=== PATIENT | female | born 1935 | race Caucasian/White ===

== ENCOUNTER 2018-01-26 21:20 | Emergency (ER) | payer MEDICARE, OTHER ==
[~2018-01-26] VITALS: Ht 170.2 cm; Wt 105.0 kg
[~2018-01-26 21:20] MED LIST: ACCUPRIL5 MG PO; ALENDRONATE SOD70 MG PO; ALENDRONATE70 MG OR; ALENDRONATE70 MG PO; ALTACE5 M1 OR; ALTACE5 M1 PO; ALTACE5 M2 OR; ALTACE5 MG OR; ALTACE5 MG PO; AMBIEN5 MG PO; ANUSOL HC25 MG RE; ARICEPT10 MG PO; ARMOUR THYRO60 MG OR; ASPIRIN CHEWABL81 MG OR; BISACODYL10 M1 RE; CALCIUM500 MG/D PO; CALCIUM600 M2 PO; CIPROFLOXACIN250 MG PO; CIPROFLOXACN500 MG PO; COLACE100 MG PO; DARVOCET-N 100100 MG OR; DUONEB IN; EC ASPIRIN325 MG PO; ESCITALOPRAM OX10 MG PO; EXELON1.5 MG PO; FLEET ENEMA RE; FUROSEMIDE20 MG PO; GLIPIZIDE ER10 M1 PO; GLIPIZIDE ER10 MG OR; GLIPIZIDE10 MG OR; GLUCOTROL10 MG OR; GLUCOTROL5 MG OR; HYDROCO/APAP1 TA9 PO; KLOR-CON M1010 MEQ PO; LANTUS100 MG/ML SC; LANTUS100 UNIT/M SC; LASIX 20 MG TAB20 MG PO; LASIX 20 MG20 MG/TAB OR; LASIX 40 MG TAB40 MG OR; LASIX20 MG PO; LASIX40 MG OR; LEVOTHROID100 MCG OR; LEVOTHYROXIN100 MC1 PO; LEVOTHYROXIN100 MCG PO; LIPITOR10 MG OR; LISINOPRIL10 M1 PO; LORTAB 10 PO; LORTAB 5/3255 MG PO; MIRALAX3350 N1 OR; MULTI VIT PO; NAPROSYN375 MG PO; NOVOLOG100 UNIT/M SC; PERCOCET 5/325M1 TAB PO; PLAVIX75 MG PO; POTASSIUM CHLO10 ME3 PO; PREDNISONE50 MG PO; PREVACID15 M1 PO; PREVACID15 M3 PO; PREVACID30 M1 OR; RAMIPRIL1.25 MG PO; RAMIPRIL2.5 MG PO; REQUIP0.25 MG OR; RIVASTIGMINE1.5 MG PO; ROPINIROLE0.5 MG; ROPINIROLE0.5 MG PO; ROPINIROLE5 MG OR; SIMVASTATIN10 MG PO; SIMVASTATIN40 MG PO; TYLENOL # 31 TAB OR; TYLENOL # 31 TAB PO; TYLENOL325 MG PO; ULTRAM50 M1 PO; ULTRAM50 MG PO; VITAMIN B-121000 MCG PO; VITAMIN D400 MG PO; ZOLPIDEM5 MG PO; ZPAK PO
[2018-01-26] MEDS ORDERED: ASPIRIN 81 LOW81 MG PO (21:41)
[2018-01-27] MEDS ORDERED: PERCOCET 5/325M1 TAB PO (01:15)
[2018-01-27 01:21] VITALS: BP 118/55
== END 2018-01-27 01:38 ==
LOC: ED 21:20
DX: S80.12XA Contusion of left lower leg, initial encounter (principal); S80.11XA Contusion of right lower leg, initial encounter; S80.02XA Contusion of left knee, initial encounter; W05.0XXA Fall from non-moving wheelchair, initial encounter; Y93.89 Activity, other specified; Y92.122 Bedroom in nursing home as the place of occurrence of the external cause; F03.90 Unspecified dementia, unspecified severity, without behavioral disturbance, psychotic disturbance, mood disturbance, and anxiety

== ENCOUNTER 2018-04-01 15:17 | Emergency (ER) | payer MEDICARE, OTHER ==
[~2018-04-01] VITALS: Ht 170.2 cm; Wt 79.5 kg
[~2018-04-01 15:17] MED LIST changes: +ASPIRIN 81 LOW81 MG PO
[2018-04-01 15:45] LABS: HEMATOCRIT 34.5 % (37.0-47.0); IMMATURE GRANULOCYTES 0.3 % (0.0-5.0); MEAN CELL VOLUME 89.8 fL CALC (80.0-100.0); MEAN CORPUSCULAR HGB 28.6 pG CALC (26.0-32.0); MEAN CORPUSCULAR HGB CONC 31.9 g/L CALC (32.0-36.0); NEUT# 5.06 thou/uL (2.00-7.15); RED BLOOD COUNT 3.84 mill/uL (4.20-5.60); RED CELL DISTRI WIDTH 14.2 % (11.5-15.5)
[2018-04-01 15:58] LABS: INTERNATIONAL NORMALIZED RATIO 1.1 RATIO (0.7-1.3); PROTHROMBIN TIME 11.1 SECONDS (9.0-12.5)
[2018-04-01 15:59] LABS: ALBUMIN 3.5 g/dL (3.2-5.0); ALKALINE PHOSPHATASE 108 u/l (38-126); BILIRUBIN, TOTAL 0.6 mg/dL (0.0-1.4); BUN 19 mg/dL (8-23); BUN/CREATININE RATIO 40 (12-20 (CALC)); CHLORIDE 103 mmol/l (95-108); CREATININE 0.5 mg/dL (0.5-1.0); GFR > 60 ML/MIN (>=60 (CALC)); GFR FOR AFR.AMER. > 60 ML/MIN (>=60 (CALC)); POTASSIUM 4.4 mmol/l (3.5-5.1); SGOT/AST 38 u/l (9-36); SODIUM 139 mmol/l (137-146); TOTAL PROTEIN 6.7 g/dL (6.3-8.2)
[2018-04-01 16:01] LABS: ANION GAP 11 (6-22 (CALC)); CARBON DIOXIDE 29 mmol/l (22-30)
[2018-04-01 17:55] VITALS: BP 109/48
== END 2018-04-01 18:00 | disposition short-term general hospital (02) ==
LOC: ED 15:17
PROVIDERS: Emergency Medicine
DX: K92.0 Hematemesis (principal); F03.90 Unspecified dementia, unspecified severity, without behavioral disturbance, psychotic disturbance, mood disturbance, and anxiety
CPT/HCPCS: S0164

== ENCOUNTER → 2018-05-14 | Outpatient (REF) | payer MEDICARE, OTHER ==
[~2018-05-14] MED LIST changes: +BACTRIM DS1 TAB PO; +KEFLEX500 M1 PO; +MUPIROCIN2 % EX; +PANTOPRAZOLE SO40 MG PO
[2018-05-14 14:19] LABS: HEMATOCRIT 32.8 % (37.0-47.0); HEMOGLOBIN 11.2 g/dl (12.0-16.0); IMMATURE GRANULOCYTES 0.8 % (0.0-5.0); MEAN CORPUSCULAR HGB CONC 34.1 g/L CALC (32.0-36.0); NEUT# 3.95 thou/uL (2.00-7.15); RED BLOOD COUNT 3.86 mill/uL (4.20-5.60); RED CELL DISTRI WIDTH 13.7 % (11.5-15.5)
== END | disposition home or self-care (01) ==
LOC: LABSPEC-NH 14:00
PROVIDERS: ATTEND Internal Medicine
DX: K92.2 Gastrointestinal hemorrhage, unspecified (principal)

== ENCOUNTER 2018-05-26 14:56 | Emergency (ER) | payer MEDICARE, OTHER ==
[~2018-05-26] VITALS: Ht 170.2 cm; Wt 90.0 kg
[~2018-05-26 14:56] MED LIST changes: -BACTRIM DS1 TAB PO; -KEFLEX500 M1 PO; -MUPIROCIN2 % EX; -PANTOPRAZOLE SO40 MG PO
[2018-05-26] MEDS ORDERED: PANTOPRAZOLE SO40 MG PO (15:35)
[2018-05-26 16:07] LABS: HEMATOCRIT 34.3 % (37.0-47.0); HEMOGLOBIN 10.8 g/dl (12.0-16.0); IMMATURE GRANULOCYTES 0.1 % (0.0-5.0); MEAN CORPUSCULAR HGB 28.6 pG CALC (26.0-32.0); MEAN CORPUSCULAR HGB CONC 31.5 g/L CALC (32.0-36.0); NEUT# 4.27 thou/uL (2.00-7.15); RED BLOOD COUNT 3.77 mill/uL (4.20-5.60); RED CELL DISTRI WIDTH 13.6 % (11.5-15.5)
[2018-05-26 16:12] LABS: URINE BILIRUBIN - DIPSTICK NEGATIVE (NEGATIVE); URINE BLOOD DIPSTICK LARGE (NEGATIVE); URINE GLUCOSE - DIPSTICK NEGATIVE (NEGATIVE); URINE KETONE NEGATIVE (NEGATIVE); URINE LEUK ESTERASE NEGATIVE (NEGATIVE); URINE PH 8.5 (4.5-8.0); URINE PROTEIN - DIPSTICK >=300 mg/dL (NEG-TRACE)
[2018-05-26 16:15] LABS: ALBUMIN 3.5 g/dL (3.2-5.0); ALKALINE PHOSPHATASE 88 u/l (38-126); ANION GAP 14 (6-22 (CALC)); BILIRUBIN, TOTAL 0.4 mg/dL (0.0-1.4); BUN 27 mg/dL (8-23); BUN/CREATININE RATIO 41 (12-20 (CALC)); CARBON DIOXIDE 26 mmol/l (22-30); CHLORIDE 103 mmol/l (95-108); CREATININE 0.7 mg/dL (0.5-1.0); GFR > 60 ML/MIN (>=60 (CALC)); GFR FOR AFR.AMER. > 60 ML/MIN (>=60 (CALC)); POTASSIUM 4.7 mmol/l (3.5-5.1); SGOT/AST 23 u/l (9-36); SODIUM 138 mmol/l (137-146); TOTAL PROTEIN 6.5 g/dL (6.3-8.2)
[2018-05-26 16:19] LABS: URINE COLOR RED; URINE NITRITE - DIPSTICK POSITIVE (Negative)
[2018-05-26 16:20] LABS: URINE BACTERIA FEW hpf; URINE RBC TNTC RBC/hpf (0-5); URINE SQUAMOUS EPITHELIAL CELL FEW EPI/hpf (0-FEW)
[2018-05-26] MEDS ORDERED: BACTRIM DS1 TAB PO (16:32)
[2018-05-26 16:54] VITALS: BP 109/68
== END 2018-05-26 16:56 ==
LOC: ED 14:56
DX: N39.0 Urinary tract infection, site not specified (principal); R31.9 Hematuria, unspecified; E11.9 Type 2 diabetes mellitus without complications; I10 Essential (primary) hypertension; E78.5 Hyperlipidemia, unspecified; F03.90 Unspecified dementia, unspecified severity, without behavioral disturbance, psychotic disturbance, mood disturbance, and anxiety; F32.9 Major depressive disorder, single episode, unspecified; G25.81 Restless legs syndrome; M81.0 Age-related osteoporosis without current pathological fracture

== ENCOUNTER 2018-05-27 13:47 | Inpatient (IN) | payer MEDICARE, OTHER ==
[~2018-05-27] VITALS: Ht 182.9 cm; Wt 77.0 kg
[~2018-05-27 13:47] MED LIST changes: +BACTRIM DS1 TAB PO; +PANTOPRAZOLE SO40 MG PO
[2018-05-27 14:55] LABS: HEMATOCRIT 32.1 % (37.0-47.0); HEMOGLOBIN 10.1 g/dl (12.0-16.0); IMMATURE GRANULOCYTES 0.2 % (0.0-5.0); MEAN CELL VOLUME 90.2 fL CALC (80.0-100.0); MEAN CORPUSCULAR HGB 28.4 pG CALC (26.0-32.0); MEAN CORPUSCULAR HGB CONC 31.5 g/L CALC (32.0-36.0); NEUT# 3.86 thou/uL (2.00-7.15); RED BLOOD COUNT 3.56 mill/uL (4.20-5.60); RED CELL DISTRI WIDTH 13.6 % (11.5-15.5)
[2018-05-27 15:22] LABS: ALBUMIN 3.2 g/dL (3.2-5.0); ALKALINE PHOSPHATASE 89 u/l (38-126); ANION GAP 13 (6-22 (CALC)); BILIRUBIN, TOTAL 0.3 mg/dL (0.0-1.4); BUN 22 mg/dL (8-23); BUN/CREATININE RATIO 27 (12-20 (CALC)); CARBON DIOXIDE 26 mmol/l (22-30); CHLORIDE 103 mmol/l (95-108); CREATININE 0.8 mg/dL (0.5-1.0); GFR > 60 ML/MIN (>=60 (CALC)); GFR FOR AFR.AMER. > 60 ML/MIN (>=60 (CALC)); POTASSIUM 4.6 mmol/l (3.5-5.1); SGOT/AST 18 u/l (9-36); SODIUM 138 mmol/l (137-146)
[2018-05-27 16:28] VITALS: BP 108/44
[2018-05-27 19:25] VITALS: BP 109/60
[2018-05-27 23:45] VITALS: BP 119/60
[2018-05-28] VITALS (9 sets, daily range): BP systolic 106–140; BP diastolic 40–60
[2018-05-28 05:33] LABS: HEMOGLOBIN 10.6 g/dl (12.0-16.0); IMMATURE GRANULOCYTES 0.3 % (0.0-5.0); MEAN CELL VOLUME 91.2 fL CALC (80.0-100.0); MEAN CORPUSCULAR HGB 28.4 pG CALC (26.0-32.0); MEAN CORPUSCULAR HGB CONC 31.2 g/L CALC (32.0-36.0); NEUT# 3.98 thou/uL (2.00-7.15); RED BLOOD COUNT 3.73 mill/uL (4.20-5.60); RED CELL DISTRI WIDTH 13.6 % (11.5-15.5)
[2018-05-28 05:43] LABS: URINE CLARITY TURBID
[2018-05-28 05:44] LABS: URINE COLOR RED; URINE RBC 25-50 RBC/hpf (0-5); URINE SQUAMOUS EPITHELIAL CELL FEW EPI/hpf (0-FEW); URINE WBC 50-100 WBC/hpf (0-5)
[2018-05-28 05:45] LABS: URINE AMORPH SEDIMENT MODERATE hpf (NONE-FEW); URINE BACTERIA MODERATE hpf
[2018-05-28 15:01] LABS: ANION GAP 12 (6-22 (CALC)); BUN 14 mg/dL (8-23); BUN/CREATININE RATIO 23 (12-20 (CALC)); CARBON DIOXIDE 22 mmol/l (22-30); CHLORIDE 107 mmol/l (95-108); CREATININE 0.6 mg/dL (0.5-1.0); GFR > 60 ML/MIN (>=60 (CALC)); GFR FOR AFR.AMER. > 60 ML/MIN (>=60 (CALC)); MAGNESIUM 1.8 mg/dL (1.6-2.3); POTASSIUM 4.2 mmol/l (3.5-5.1); SODIUM 137 mmol/l (137-146)
[2018-05-29] VITALS (7 sets, daily range): BP systolic 112–133; BP diastolic 42–62
[2018-05-30 03:48] VITALS: BP 117/55
[2018-05-30 05:40] LABS: HEMOGLOBIN 10.4 g/dl (12.0-16.0); IMMATURE GRANULOCYTES 0.5 % (0.0-5.0); MEAN CELL VOLUME 92.2 fL CALC (80.0-100.0); MEAN CORPUSCULAR HGB 29.1 pG CALC (26.0-32.0); MEAN CORPUSCULAR HGB CONC 31.5 g/L CALC (32.0-36.0); NEUT# 2.62 thou/uL (2.00-7.15); RED BLOOD COUNT 3.58 mill/uL (4.20-5.60); RED CELL DISTRI WIDTH 13.6 % (11.5-15.5)
[2018-05-30 05:44] LABS: ALBUMIN 3.3 g/dL (3.2-5.0); ALKALINE PHOSPHATASE 80 u/l (38-126); AMYLASE 94 u/l (30-110); ANION GAP 12 (6-22 (CALC)); BILIRUBIN, TOTAL 0.5 mg/dL (0.0-1.4); BUN 9 mg/dL (8-23); BUN/CREATININE RATIO 15 (12-20 (CALC)); CARBON DIOXIDE 28 mmol/l (22-30); CHLORIDE 105 mmol/l (95-108); CREATININE 0.6 mg/dL (0.5-1.0); GFR > 60 ML/MIN (>=60 (CALC)); GFR FOR AFR.AMER. > 60 ML/MIN (>=60 (CALC)); LIPASE 11 u/l (23-300); MAGNESIUM 2.1 mg/dL (1.6-2.3); POTASSIUM 4.7 mmol/l (3.5-5.1); SGOT/AST 25 u/l (9-36); SODIUM 141 mmol/l (137-146); TOTAL PROTEIN 6.1 g/dL (6.3-8.2)
[2018-05-30 08:24] VITALS: BP 143/50
[2018-05-30 11:20] VITALS: BP 141/76
[2018-05-30] MEDS ORDERED: KEFLEX500 M1 PO (15:03)
[2018-05-30 15:45] VITALS: BP 140/70
[2018-05-30 19:24] VITALS: BP 108/62
[2018-05-30 23:35] VITALS: BP 99/51
[2018-05-31 04:10] VITALS: BP 137/65
[2018-05-31 07:47] VITALS: BP 139/70
[2018-05-31] MEDS ORDERED: MUPIROCIN2 % EX (11:31)
[2018-05-31 11:51] VITALS: BP 130/65
[2018-05-31 17:01] VITALS: BP 140/69
[2018-05-31 20:00] VITALS: BP 106/66
[2018-06-01 00:20] VITALS: BP 137/80
[2018-06-01 07:48] VITALS: BP 154/64
[2018-06-01 07:49] VITALS: BP 154/64
== END 2018-06-01 08:45 | DRG 670 ==
LOC: MS2 13:47
PROVIDERS: Internal Medicine Nephrology; Nurse Practitioner Family; ADMIT Internal Medicine; ATTEND Internal Medicine
PROC: 0TBB8ZX Excision of Bladder, Via Natural or Artificial Opening Endoscopic, Diagnostic (ICD-10-PCS; principal; 2018-05-28)
PROC: 0T9B70Z Drainage of Bladder with Drainage Device, Via Natural or Artificial Opening (ICD-10-PCS; 2018-05-28)
DX: N39.0 Urinary tract infection, site not specified (principal); R31.0 Gross hematuria; I10 Essential (primary) hypertension; F03.90 Unspecified dementia, unspecified severity, without behavioral disturbance, psychotic disturbance, mood disturbance, and anxiety; E11.9 Type 2 diabetes mellitus without complications; E03.9 Hypothyroidism, unspecified; E78.5 Hyperlipidemia, unspecified; M81.0 Age-related osteoporosis without current pathological fracture; B96.4 Proteus (mirabilis) (morganii) as the cause of diseases classified elsewhere; T39.015A Adverse effect of aspirin, initial encounter; Z86.73 Personal history of transient ischemic attack (TIA), and cerebral infarction without residual deficits; Z22.322 Carrier or suspected carrier of Methicillin resistant Staphylococcus aureus; Z88.0 Allergy status to penicillin; Z79.4 Long term (current) use of insulin

== ENCOUNTER 2019-08-26 07:55 | Emergency (ER) | payer MEDICARE, OTHER ==
[~2019-08-26 07:55] MED LIST changes: +KEFLEX500 M1 PO; +MUPIROCIN2 % EX
[2019-08-26] MEDS ORDERED: ALDACTONE25 MG PO (08:39)
[2019-08-26] MEDS ORDERED: LASIX 20 MG TAB20 MG PO (08:42)
[2019-08-26 11:46] VITALS: BP 110/86
[2019-08-26 11:46] LABS: HEMATOCRIT 29.8 % (37.0-47.0); HEMOGLOBIN 9.7 g/dl (12.0-16.0); IMMATURE GRANULOCYTES 0.6 % (0.0-5.0); MEAN CELL VOLUME 90.6 fL CALC (80.0-100.0); MEAN CORPUSCULAR HGB 29.5 pG CALC (26.0-32.0); MEAN CORPUSCULAR HGB CONC 32.6 g/dL CAL (32.0-36.0); NEUT# 5.6 thou/uL (2.00-7.15); RED BLOOD COUNT 3.29 mill/uL (4.20-5.60); RED CELL DISTRI WIDTH 13.5 % (11.5-15.5)
[2019-08-26 12:05] LABS: PROTHROMBIN TIME 10.8 SECONDS (9.0-12.5)
[2019-08-26 12:07] LABS: ALBUMIN 3.1 g/dL (3.2-5.0); ALKALINE PHOSPHATASE 95 u/l (38-126); ANION GAP 9 (6-22 (CALC)); BILIRUBIN, TOTAL 0.6 mg/dL (0.0-1.4); BUN 18 mg/dL (8-23); BUN/CREATININE RATIO 35 (12-20 (CALC)); CARBON DIOXIDE 25 mmol/l (22-30); CHLORIDE 108 mmol/l (95-108); CREATININE 0.5 mg/dL (0.5-1.0); GFR > 60 ML/MIN (>=60 (CALC)); GFR FOR AFR.AMER. > 60 ML/MIN (>=60 (CALC)); POTASSIUM 4.2 mmol/l (3.5-5.1); SODIUM 137 mmol/l (137-146); TOTAL PROTEIN 6.3 g/dL (6.3-8.2)
[2019-08-26 12:08] LABS: SGOT/AST 44 u/l (9-36)
== END 2019-08-26 11:35 | disposition short-term general hospital (02) ==
LOC: ED 07:55
PROVIDERS: Emergency Medicine
DX: S72.402A Unspecified fracture of lower end of left femur, initial encounter for closed fracture (principal); M97.12XA Periprosthetic fracture around internal prosthetic left knee joint, initial encounter; E11.9 Type 2 diabetes mellitus without complications; I10 Essential (primary) hypertension; F03.90 Unspecified dementia, unspecified severity, without behavioral disturbance, psychotic disturbance, mood disturbance, and anxiety; J44.9 Chronic obstructive pulmonary disease, unspecified; X58.XXXA Exposure to other specified factors, initial encounter; Y92.129 Unspecified place in nursing home as the place of occurrence of the external cause; Z96.652 Presence of left artificial knee joint; Z79.4 Long term (current) use of insulin; Z11.59 Encounter for screening for other viral diseases

== ENCOUNTER 2020-01-01 14:23 | Inpatient (IN) | payer MEDICARE, OTHER ==
[~2020-01-01] VITALS: Ht 177.8 cm; Wt 72.6 kg
[~2020-01-01 14:23] MED LIST changes: +ALDACTONE25 MG PO
--- NOTE | 2020-01-01 14:35 | NUR ---
PT TO ROOM VIA STRETCHER WITH AUDIBLE WHEEZING
--- NOTE | 2020-01-01 15:10 | NUR ---
UNABLE TO OBTAINED IV ACCESS AT THIS TIME AFTER MANY ATTEMPTS WILL TRY AGAIN SOON. PT NON VERBAL NO S/S OF DISTRESS OR DISCOMFORT, CALL BARKLEY WITHIN REACH
[2020-01-01 15:22] LABS: HEMATOCRIT 33.7 % (37.0-47.0); HEMOGLOBIN 10.7 g/dl (12.0-16.0); IMMATURE GRANULOCYTES 0.2 % (0.0-5.0); MEAN CELL VOLUME 85.8 fL CALC (80.0-100.0); MEAN CORPUSCULAR HGB 27.2 pG CALC (26.0-32.0); MEAN CORPUSCULAR HGB CONC 31.8 g/dL CAL (32.0-36.0); NEUT# 2.3 thou/uL (2.00-7.15); RED BLOOD COUNT 3.93 mill/uL (4.20-5.60); RED CELL DISTRI WIDTH 16.2 % (11.5-15.5)
[2020-01-01 15:29] LABS: ALBUMIN 3.3 g/dL (3.2-5.0); ALKALINE PHOSPHATASE 71 u/l (38-126); ANION GAP 10 (6-22 (CALC)); BUN 18 mg/dL (8-23); BUN/CREATININE RATIO 26 (12-20 (CALC)); CARBON DIOXIDE 25 mmol/l (22-30); CHLORIDE 107 mmol/l (95-108); CREATININE 0.7 mg/dL (0.5-1.0); GFR > 60 ML/MIN (>=60 (CALC)); GFR FOR AFR.AMER. > 60 ML/MIN (>=60 (CALC)); POTASSIUM 3.8 mmol/l (3.5-5.1); SGOT/AST 20 u/l (9-36); SODIUM 138 mmol/l (137-146); TOTAL PROTEIN 6.2 g/dL (6.3-8.2)
[2020-01-01 15:38] LABS: BILIRUBIN, TOTAL 0.3 mg/dL (0.0-1.4)
[2020-01-01 15:40] LABS: INTERNATIONAL NORMALIZED RATIO 1.1 RATIO (0.7-1.3)
--- NOTE | 2020-01-01 16:11 | NUR ---
REMAINS UNABLE TO OBTAINED IV ACCESS AFTER GREATER THAN 10 ATTEMPTS, NO S/S OF DISTRESS OR DISCOMFORT, MD AWARE.
--- NOTE | 2020-01-01 16:37 | NUR ---
IV ACCESS OBTAINED PT IN CT AT THIS TIME, WILL CONTINUE TO MONITOR.
--- NOTE | 2020-01-01 17:35 | NUR ---
IV ACCESS OBTAINED AND IVF INFUSING
--- NOTE | 2020-01-01 18:01 | NUR ---
[facility] SWAB COMPLATED ST CATH PERFRFOMED FOR URINE COLLECTION WITH SMALL AMOUNT CLOUDY MILKY YELLOW URINE REC'D, SPECIMEN SENT, WILL CONTINUE TO MONITOR.
[2020-01-01] MEDS ORDERED: EQL VITAMIN B500 MCG PO (18:17)
[2020-01-01] MEDS ORDERED: VITAMIN D PO (18:19)
[2020-01-01] MEDS ORDERED: MULTI VIT PO (18:21)
[2020-01-01] MEDS ORDERED: REMERON7.5 MG PO (18:21)
[2020-01-01 18:26] LABS: URINE BILIRUBIN - DIPSTICK NEGATIVE (NEGATIVE); URINE BLOOD DIPSTICK LARGE (NEGATIVE); URINE COLOR STRAW; URINE GLUCOSE - DIPSTICK NEGATIVE (NEGATIVE); URINE KETONE TRACE mg/dL (NEGATIVE); URINE LEUK ESTERASE MODERATE (NEGATIVE); URINE NITRITE - DIPSTICK NEGATIVE (Negative); URINE PH 5.5 (4.5-8.0); URINE PROTEIN - DIPSTICK 100 mg/dL (NEG-TRACE); URINE SPECIFIC GRAVITY >=1.030; URINE UROBILINOGEN - DIPSTICK 0.2 E.U./dL (0.2)
[2020-01-01 18:27] LABS: URINE SQUAMOUS EPITHELIAL CELL MANY EPI/hpf (0-FEW); URINE WBC TNTC WBC/hpf (0-5)
--- NOTE | 2020-01-01 19:30 | NUR ---
PATIENT REMOVED HIMSELF FROM MONITOR, NIBP, O2 AND PULSE OX AND AMBULATED TO . ON RETURNING TO BED STARTED YELLING OUT OUT, "I CAN'T BREATHE, I CAN'T BREATHE." ASSISTED PATIENT TO BED, REPLACED O2- O2 SAT 68%. INCREASED O2 FROM 4 L NC TO 10 L NC. O2 SAT GRADUALLY PICKED UP TO 91-93% DISCUSSED WITH PAITENT NEED FOR O2 AND NEED TO USE URINAL OR BSC AT BEDSIDE DUE TO DESATTING. PATIENT VERBALIZES UNDERSTANDING AND AGREEMENT WITH PLAN. BSC AND URINAL PROVIDED AT BEDSIDE.
--- NOTE | 2020-01-01 19:45 | NUR ---
RESTING IN BED. RESP NON-LABORED AT THIS TIME. CHANGED O2 TO 10 L HF NC. BREATH SOUNDS COARSE THROUGHOUT. SHIFT ASSESSMENT COMPLETED. DENIES NEEDS AT THIS TIME. CALL BARKLEY IN REACH.
--- NOTE | 2020-01-01 20:13 | NUR ---
RECEIVED REPORT FROM NURSE GRANT PATIENT TRANSPORTED VIA BED, TOTAL ASSIST WITH TRANSFER, PATIENT IS ASLEEP, RESPONDS TO PAIN STIMULI, WITH ONGOING IV NS IV BOLUS @LAC G20 INFUSING WELL, HOOKED TO TELE SB 53, INCONTINENT CARE PROVIDED, BED ALARM IN PLACE.
--- NOTE | 2020-01-01 20:15 | NUR ---
PATIENT IS STABLE, LYING ON STRETCHED ON THE LEFT SIDE RESTING. REPORT CALLED , IV SITE HAS FLUIDS INFUSING WITHOUT ANY COMPLICATIONS. PATIENT TRANSPORTED TO THE FLOOR VIA STRETCHER. TELE MONITOR IN PLACE.
[2020-01-01 20:47] VITALS: BP 139/60
[2020-01-01 23:47] VITALS: BP 147/63
--- NOTE | 2020-01-02 | NUR ---
PATIENT RESPONDS TO PAIN STIMULI, APPLIED PUREWICK, PATIENT TURNED AND REPOSITIONED, BREATHING UNLABORED CALL LIGHT AT [facility].
[2020-01-02 04:00] VITALS: BP 134/58
--- NOTE | 2020-01-02 04:41 | NUR ---
PATIENT MORE ALERT OPENS EYES NO NAME, NOT IN DISTRESS BREATHING SHALLOW UNLABORED, CALL LIGHT AT REACH.
[2020-01-02 05:11] LABS: HEMATOCRIT 34.8 % (37.0-47.0); HEMOGLOBIN 10.9 g/dl (12.0-16.0); IMMATURE GRANULOCYTES 0.2 % (0.0-5.0); MEAN CELL VOLUME 86.6 fL CALC (80.0-100.0); MEAN CORPUSCULAR HGB 27.1 pG CALC (26.0-32.0); MEAN CORPUSCULAR HGB CONC 31.3 g/dL CAL (32.0-36.0); NEUT# 2.39 thou/uL (2.00-7.15); RED BLOOD COUNT 4.02 mill/uL (4.20-5.60); RED CELL DISTRI WIDTH 16.6 % (11.5-15.5)
[2020-01-02 05:31] LABS: ALBUMIN 2.9 g/dL (3.2-5.0); ALKALINE PHOSPHATASE 60 u/l (38-126); ANION GAP 8 (6-22 (CALC)); BUN 17 mg/dL (8-23); BUN/CREATININE RATIO 35 (12-20 (CALC)); CARBON DIOXIDE 24 mmol/l (22-30); CHLORIDE 113 mmol/l (95-108); CREATININE 0.5 mg/dL (0.5-1.0); GFR > 60 ML/MIN (>=60 (CALC)); GFR FOR AFR.AMER. > 60 ML/MIN (>=60 (CALC)); POTASSIUM 3.9 mmol/l (3.5-5.1); SGOT/AST 19 u/l (9-36); SODIUM 140 mmol/l (137-146); TOTAL PROTEIN 5.7 g/dL (6.3-8.2)
[2020-01-02 05:55] LABS: BILIRUBIN, TOTAL 0.5 mg/dL (0.0-1.4)
--- NOTE | 2020-01-02 06:55 | NUR ---
REPORT RECEIVED FROM DIANE PENA. PT RESTING IN BED. NO S/S OF DISTRESS AT THIS TIME. WILL CONTINUE TO MONITOR.
--- NOTE | 2020-01-02 07:56 | NUR ---
PT RESTING IN BED. RESPIRATIONS SHALLOW ON RA. LUNGS SOUND DIMINISHED. PEDAL PULSES ARE WEAK. PT DENIES ANY PAIN AT THIS TIME. SAFETY PRECAUTIONS IN PLACE. WILL CONTINUE TO MONITOR.
[2020-01-02 08:01] VITALS: BP 145/89
--- NOTE | 2020-01-02 10:09 | NUR ---
ART FROM [facility] CALLED FOR INFORMATION REGARDING PT AND HOSPICE CONSULT. STATES SHE WILL CONTACT DAUGHTER ABOUT HER WISHES AND HAVE A NURSE COME TO BEDSIDE FOR EVAL.
[2020-01-02 10:55] VITALS: BP 122/40
--- NOTE | 2020-01-02 12:42 | NUR ---
PT RESTING IN BED, RESPIRATIONS EVEN AND UNLABORED ON RA. NO S/S OF DISTRESS AT THIS TIME. WILL CONTINUE TO MONITOR.
[2020-01-02 15:00] VITALS: BP 90/39
--- NOTE | 2020-01-02 15:44 | NUR ---
IV SITE TO LAC INFILTRATED; IV DC'D, ICE APPLIED, AND LEFT ARM ELEVATED ON PILLOW. NEW SITE STARTED TO RAC; APPEARS HEALTHY AND FLUSHES WELL; IV FLUIDS RECONNECTED AND INFUSING.
--- NOTE | 2020-01-02 16:04 | NUR ---
PT RESTING IN BED. NO S/S OF DISTRESS AT THIS TIME. SAFETY PRECAUTIONS IN PLACE. WILL CONTINUE TO MONITOR.
[2020-01-02 19:00] VITALS: BP 144/70
--- NOTE | 2020-01-02 19:10 | NUR ---
REPORT FROM MERRY CONTRERAS. PT NOTED RESTING IN BED WITH EYES CLOSED. PT ALERT TO VERBAL STIMULI. PT VERBALLY RESPONSIVE, BUT UNINTELLIGIBLE. NO APPARENT DISTRESS NOTED. NO S/S OF PAIN OR DISCOMFORT. RESPIRATIONS EVEN AND UNLABORED. IV SITE APPEARS HEALTHY WITH IVF INFUSING WITHOUT DIFFICULTY. CAUSTIC PUMP OPERATOR IN PLACE. INCONTINENT OF BOWEL AND BLADDER, PURWICK IN PLACE. PT REPOSITIONED AT THIS TIME. CALL LIGHT WITHIN REACH. WILL CONTINUE TO MONITOR.
--- NOTE | 2020-01-02 23:25 | NUR ---
PT RESTING IN BED WITH EYES CLOSED. NO APPARENT DISTRESS NOTED. RESPIRATIONS EVEN AND UNLABORED. SEMIAUTOMATIC STITCHER OPERATOR IN PLACE. IVF INFUSING WITHOUT DIFFICULTY. CALL LIGHT WITHIN REACH. WILL CONTINUE TO MONITOR.
[2020-01-03 00:18] VITALS: BP 120/84
--- NOTE | 2020-01-03 00:20 | NUR ---
PT NOTED TO HAVE INCREASED EDEMA IN BUE AND AUDIBLE WHEEZING. ORDERS RECEIVED TO KVI FLUIDS AND 1 TIME DOSE OF LASIX. WILL MEDICATED AND CONTINUE TO MONITOR.
[2020-01-03 04:25] VITALS: BP 125/72
--- NOTE | 2020-01-03 04:34 | NUR ---
PT RESTING IN BED. PT AWAKE LOOKING AROUND. NO APPARENT DISTRESS NOTED. AUDIBLE WHEEZING SUBSIDED. PURWIK IN PLACE FUNCTIONING PROPERLY. PT REPOSITIONED BY STAFF Q2H THROUGHOUT NIGHT. CALL LIGHT WITHIN REACH. WILL CONTINUE TO MONITOR.
--- NOTE | 2020-01-03 06:48 | NUR ---
REPORT RECEIVED FROM HEAVEN ANDREA. PT RESTING IN BED. NO S/S OF DISTRESS AT THIS TIME. SAFETY PRECAUTIONS IN PLACE. WILL CONTINUE TO MONITOR.
[2020-01-03 07:12] VITALS: BP 155/69
--- NOTE | 2020-01-03 07:13 | NUR ---
DE RESTING IN BED, ALERT. RESPIRATIONS ARE EVEN AND UNLABRORED ON RA. LUNGS SOUND DIMINISHED. PEDAL PULSES ARE WEAK. PT STATES "I DON'T KNOW" WHEN ASKED IF SHE IS IN PAIN. SAFETY PRECAUTIONS IN PLACE. WILL CONTINUE TO MONITOR.
--- NOTE | 2020-01-03 08:42 | NUR ---
AND ANRP AT BEDSIDE
[2020-01-03] MEDS ORDERED: ALDACTONE25 MG PO (10:09)
[2020-01-03 11:21] VITALS: BP 115/44
--- NOTE | 2020-01-03 11:30 | NUR ---
PT RESTING IN BED, RESPIRATIONS ARE EVEN AND UNLABORED ON RA. NO S/S OF DISTRESS AT THIS TIME. FAMILY AT BEDSIDE VISITING. SAFETY PRECAUTIONS IN PLACE. WILL CONTINUE TO MONITOR.
--- NOTE | 2020-01-03 14:08 | NUR ---
DAUGHTER AT BEDSIDE VISITING
[2020-01-03 15:24] VITALS: BP 121/59
--- NOTE | 2020-01-03 16:13 | NUR ---
PT RESTING IN BED WITH EYES CLOSED, EASILY AROUSED. RESPIRATIONS SHALLOW ON RA. SAFETY PRECAUTIONS IN PLACE.
--- NOTE | 2020-01-03 19:25 | NUR ---
REPORT FROM MERRY CONTRERAS. PT NOTED RESTING IN BED WITH EYES CLOSED. PT ALERT TO VERBAL STIMULI. PT VERBALLY RESPONSIVE, BUT UNINTELLIGIBLE. NO APPARENT DISTRESS NOTED. NO S/S OF PAIN OR DISCOMFORT. RESPIRATIONS EVEN AND UNLABORED. IV SITE APPEARS HEALTHY WITH IVF INFUSING AT [facility]. AUTOMOTIVE DETAILER IN PLACE. INCONTINENT OF BOWEL AND BLADDER, PURWICK IN PLACE. PT REPOSITIONED AT THIS TIME. CALL LIGHT WITHIN REACH. WILL CONTINUE TO MONITOR.
[2020-01-03 19:50] VITALS: BP 128/53
--- NOTE | 2020-01-03 21:12 | NUR ---
PT MEDICATED ORDERED. NO APPARENT DISTRESS OR S/S OF PAIN NOTED. QUALITY ASSURANCE MONITOR CHASSIS IN PLACE. PURWIK IN PLACE. CALL LIGHT WITHIN REACH. WILL CONTINUE TO MONITOR.
[2020-01-04 00:08] VITALS: BP 135/58
--- NOTE | 2020-01-04 01:06 | NUR ---
PT RESTING IN BED WITH EYES CLOSED. NO APPARENT DISTRESS NOTED. RESPIRATIONS EVEN AND UNLABORED. CALL LIGHT WITHIN REACH. WILL CONTINUE TO MONITOR.
[2020-01-04 03:00] VITALS: BP 127/66
--- NOTE | 2020-01-04 03:13 | NUR ---
COMPLETE BED BATH WITH LINEN CHANGE PROVIDED. PT REPOSITIONED FOR COMFORT. HAND TRIMMER IN PLACE. NEW PURWIK APPLIED. CALL LIGHT WITHIN REACH. WILL CONTINUE TO MONITOR.
[2020-01-04 05:14] LABS: HEMATOCRIT 33.7 % (37.0-47.0); HEMOGLOBIN 10.6 g/dl (12.0-16.0); MEAN CELL VOLUME 87.3 fL CALC (80.0-100.0); MEAN CORPUSCULAR HGB 27.5 pG CALC (26.0-32.0); MEAN CORPUSCULAR HGB CONC 31.5 g/dL CAL (32.0-36.0); RED BLOOD COUNT 3.86 mill/uL (4.20-5.60); RED CELL DISTRI WIDTH 16.6 % (11.5-15.5)
[2020-01-04 05:37] LABS: ALBUMIN 3.2 g/dL (3.2-5.0); ALKALINE PHOSPHATASE 65 u/l (38-126); ANION GAP 10 (6-22 (CALC)); BILIRUBIN, TOTAL 0.6 mg/dL (0.0-1.4); BUN 13 mg/dL (8-23); BUN/CREATININE RATIO 26 (12-20 (CALC)); CARBON DIOXIDE 25 mmol/l (22-30); CHLORIDE 109 mmol/l (95-108); CREATININE 0.5 mg/dL (0.5-1.0); GFR > 60 ML/MIN (>=60 (CALC)); GFR FOR AFR.AMER. > 60 ML/MIN (>=60 (CALC)); POTASSIUM 3.7 mmol/l (3.5-5.1); SGOT/AST 26 u/l (9-36); SODIUM 139 mmol/l (137-146)
[2020-01-04 07:46] VITALS: BP 138/70
--- NOTE | 2020-01-04 07:54 | NUR ---
PT SITTING IN BED EATING BREAKFAST WITH THE HELP OF THIS FIELD CONSULTANT. A&O TO SELF, REORIENTATION NEEDED FOR CURRENT DATE, , AND PLACE. NO DISTRESS NOTED. PT STATES TO BE FEELING "OKAY". PUREWICK IN PLACE. PT DENIES ANY PAIN. NO PHYSICAL APPEARANCE OF PAIN. NO OTHER NEEDS AT THIS TIME. ASSESSMENT COMPLETED. DISCUSSED POC, REINFORCEMENT NEEDED. CALL LIGHT IN REACH. CONTINUE TO MONITOR.
--- NOTE | 2020-01-04 08:07 | NUR ---
DR GARCIA AT BEDSIDE
[2020-01-04] MEDS ORDERED: CIPROFLOXACN500 MG PO (09:50)
[2020-01-04 11:08] VITALS: BP 107/67
--- NOTE | 2020-01-04 14:00 | NUR ---
Discharge instructions given. Patient verbalizes understanding of same. Discharged in stable condition via Wheel[facility] to [facility] with *Other. All belongings sent with pt. PT TRANSPORTED TO [facility] IN STABLE CONDITION VIA WHEELCHAIR ACCOMPANIED BY R STAFF MEMBER,ALL BELONGINGS LEFT WITH PT.
== END 2020-01-04 14:00 | DRG 690 ==
LOC: ED 14:23 → ED-I 14:50 → ED 14:50 → ED-I 17:03 → ED 17:08 → MS2 17:09
PROVIDERS: Nurse Practitioner Family; Student in an Organized Health Care Education/Training Program; ADMIT Internal Medicine; ATTEND Internal Medicine
DX: N30.90 Cystitis, unspecified without hematuria (principal); G93.40 Encephalopathy, unspecified; I95.9 Hypotension, unspecified; F03.90 Unspecified dementia, unspecified severity, without behavioral disturbance, psychotic disturbance, mood disturbance, and anxiety; E11.9 Type 2 diabetes mellitus without complications; I10 Essential (primary) hypertension; E78.5 Hyperlipidemia, unspecified; F32.9 Major depressive disorder, single episode, unspecified; J44.9 Chronic obstructive pulmonary disease, unspecified; E03.9 Hypothyroidism, unspecified; B96.1 Klebsiella pneumoniae [K. pneumoniae] as the cause of diseases classified elsewhere; Z86.73 Personal history of transient ischemic attack (TIA), and cerebral infarction without residual deficits; Z79.4 Long term (current) use of insulin; Z66 Do not resuscitate; Z20.828 Contact with and (suspected) exposure to other viral communicable diseases
CPT/HCPCS: J1650